=== PATIENT | male | born 1950 | race Caucasian/White ===

== ENCOUNTER → 2018-01-09 12:52 | Outpatient (CLI) | payer MEDICARE, OTHER, SELFPAY ==
[2018-01-09 13:58] LABS: Prostate Specific Antigen < 0.064 ng/mL (0.10-4.00)
== END ==
PROVIDERS: PCP Family Medicine; Visit Provider Urology
DX: Z85.46 Personal history of malignant neoplasm of prostate (principal)
CPT/HCPCS: 36415; 84153

== ENCOUNTER → 2018-08-09 15:39 | Outpatient (CLI) | payer MEDICARE, OTHER, SELFPAY ==
[2018-08-09 18:03] LABS: Prostate Specific Antigen < 0.064 ng/mL (0.10-4.00)
== END ==
PROVIDERS: Visit Provider Urology
DX: Z85.46 Personal history of malignant neoplasm of prostate (principal)
CPT/HCPCS: 36415; 84153

== ENCOUNTER → 2020-03-11 19:02 | Outpatient (ROUT) | payer MEDICARE, OTHER, SELFPAY ==
[2020-03-11 19:31] LABS: Aspartate Aminotransferase 34 IU/L (17-59); BUN Creatinine Ratio 20.9 (6-22); Blood Urea Nitrogen 19 mg/dL (9-20); Calcium 9.6 mg/dL (8.4-10.2); Carbon Dioxide 28 mmol/L (22-32); Chloride 105 mmol/L (98-107); Cholesterol 141 mg/dL (140-199); Estimated Glomerular Filt Rate > 60.0 mL/min (>60); Glucose 89 mg/dL (80-110); HDL Cholesterol 47 mg/dL (40-60); HEMOLYSIS < 15 (0-50); LDL Cholesterol Calculated 68 mg/dL (<100); Potassium 4.2 mmol/L (3.4-5.1); Sodium 139 mmol/L (137-145); Triglycerides 129 mg/dL (35-150)
[2020-03-11 20:30] LABS: Prostate Specific Antigen < 0.064 ng/mL (0.10-4.00)
== END ==
PROVIDERS: Visit Provider Internal Medicine
DX: E78.2 Mixed hyperlipidemia (principal); E08.8 Diabetes mellitus due to underlying condition with unspecified complications; Z85.46 Personal history of malignant neoplasm of prostate
CPT/HCPCS: 80048; 80061; 84153; 84450

== ENCOUNTER 2020-08-29 05:24 | Emergency (ER) | payer MEDICARE, OTHER, SELFPAY ==
--- NOTE | 2020-08-29 05:29 | DI.RAD.S_ITS ---
PROCEDURE: XR KNEE RT 3V INDICATIONS: fall, unstable sensation TECHNIQUE: 3 views of the knee were acquired. COMPARISON: None. FINDINGS: Bones: Lucency noted in the patella which may represent a nondisplaced fracture. Two small ossifications noted adjacent to the medial margin of the patella which may represent displaced avulsion fractures or dystrophic calcifications. No suspicious bony lesions. Soft tissues: Small nonspecific suprapatellar joint effusion. No suspicious soft tissue calcifications. IMPRESSION: 1. Possible patellar fracture. No fracture. If symptoms and/or clinical suspicion for pathology persists, further assessment with advanced imaging (e.g. CT, MRI) should be considered. 2. Small nonspecific joint effusion. Ligamentous injury is not excluded by this study. Findings discussed with Dr. Ledesma on August 29, 2020 at 10:04 a.m.. Dictated by: Zoya Servin MD, PhD on 08/29/2020 at 10:00 Approved by: Zoya Servin MD, PhD on 08/29/2020 at 10:04
[2020-08-29 05:30] VITALS: BP 141/73; PULSE 58; RESP 18; TEMP 36.3; O2SAT 98
--- NOTE | 2020-08-29 06:10 | ED.LOWEXIN ---
HPI - Extremity Injury (Lower) General Chief Complaint: Extremity Injury, Lower Stated Complaint: Fall, R Knee Pain Time Seen by Provider: 08/29/20 05:25 Source: patient Mode of arrival: EMS Limitations: no limitations History of Present Illness HPI Narrative: 70-year-old gentleman with type 2 diabetes and hyperlipidemia missed the 1st of 2 steps in his house fell forward landing on both knees and then with the his anterior she in planted on the ground continued body movement forward straining the knee as well as hitting it directly. Was able to get up but felt the knee was not going to hold him up. He is having minimal pain has noticed some mild suprapatellar swelling. Related Data Home Medications Medication Instructions Recorded Confirmed aspirin 81 mg PO QDAY #0 04/25/16 03/08/18 metformin 1,000 mg PO BID #0 04/25/16 03/08/18 simvastatin 40 mg PO QDAY #0 04/25/16 03/08/18 Allergies Allergy/AdvReac Type Severity Reaction Status Date / Time Sulfa (Sulfonamide Allergy Unknown rash Verified 03/08/18 13:59 Antibiotics) [SULFA (SULFONAMIDE ANTIBIOTICS)] Review of Systems Review of Systems Narrative: Pertinent positive and negative findings as per HPI Remainder of review of systems is otherwise unremarkable for Constitutional: Fevers, chills, weakness ENT: No sore throat, neck pain, ear pain CV: Chest pain, palpitations, Respiratory: Cough, wheeze, dyspnea GI: Nausea, vomiting, diarrhea, : Dysuria, hematuria, Patient History Medical History Diabetes Hyperlipidemia Social History Smoking Status: Former smoker Smoking Status: Former smoker Substance Use Type: does not use Exam Narrative Exam Narrative: General: Alert appropriate in no acute distress Respiratory: Able to speak in full sentences, no obvious respiratory distress Skin: No obvious rashes, warm and dry Neurologic: Grossly intact no obvious asymmetries or abnormalities Psych: appropriate insight and affect, cooperative Extremities: Effusion in the prepatellar region right knee. Increased laxity with both anterior and posterior drawer sign. Minimal pain or tenderness. No swelling to the calf at this point. No hematomas abrasions contusions. Lateral and medial collateral ligaments are stable. Initial Vital Signs Initial Vital Signs: Vital Signs Temperature 97.3 F L 08/29/20 05:30 Pulse Rate 58 L 08/29/20 05:30 Respiratory Rate 18 08/29/20 05:30 Blood Pressure 141/73 H 08/29/20 05:30 Pulse Oximetry 98 08/29/20 05:30 Course Orders Ordered: ED Orders 08/29/20 05:29 XR knee RT 3V Stat Vital Signs Vital signs: Vital Signs - 8 hr 08/29/20 05:30 Temperature 97.3 F L Pulse Rate 58 L Respiratory Rate 18 Blood Pressure 141/73 H Pulse Oximetry 98 [facility] - Extremity Injury (Lower) Medical Records Attestation: I reviewed the patient's medical records. Lab Data Attestation: I reviewed the patient's lab results. Imaging Data X-ray knee: Radiologist's Impression: Prepatellar soft tissue swelling without fracture Ranjit Gaytan MD [facility] Narrative Medical decision making narrative: 70-year-old gentleman who fell in his home today stumbled over 1 stair and fell down the 2nd stair. Prepatellar swelling to the knee with concern for internal derangement of the knee and instability. No bony fractures. Patient is placed in a long-leg immobilizer and given crutches. He is having minimal pain so additional pain medications are not prescribed. Will ask him to follow-up with [facility] sometime next week for definitive care and treatment. Discharge Plan Departure Patient Disposition: Home Clinical Impression: Injury of knee Qualifiers: Encounter type: initial encounter Laterality: right Qualified Code(s): S89.91XA - Unspecified injury of right lower leg, initial encounter Instructions: DI for Knee Sprain Activity Restrictions/Additional Instructions: Thank you for coming in today You have no broken bones in your knee. You have clearly done some damage with the swelling that is beginning over the kneecap. With the lack of pain the your having and the laxity within the knee I am concerned that you may have torn some of the ligaments. At this point the knee is not stable without support. Please keep the knee brace on an use the crutches. I would like you contact [facility] at [phone] and let them know that you are in the emergency department have an acute knee injury and need to be seen and further evaluated sometime next week. Using 400 mg of ibuprofen (2 [id number] pills) and 1 Tylenol every 6 hours can be very helpful in controlling pain. Ice can also be helpful in controlling the swelling If you feel that you are getting worse please return to the ER Prescriptions: No Action simvastatin 40 MG tablet 40 mg PO QDAY Qty: 0 RF: 0 metformin 1,000 MG tablet 1,000 mg PO BID Qty: 0 RF: 0 aspirin 81 MG tablet,chewable 81 mg PO QDAY Qty: 0 RF: 0
[2020-08-29 06:37] VITALS: BP 140/70; PULSE 60; RESP 18; O2SAT 98
--- NOTE | 2020-08-29 06:42 | PC.NURSE ---
a long leg knee immobilizer was applied.
== END 2020-08-29 06:37 | disposition home or self-care (01) ==
PROVIDERS: Emergency Provider Emergency Medicine
DX: S89.91XA Unspecified injury of right lower leg, initial encounter (principal); W19.XXXA Unspecified fall, initial encounter
CPT/HCPCS: 73562; 99283

== ENCOUNTER → 2020-09-24 15:27 | Outpatient (CLI) | payer MEDICARE, OTHER, SELFPAY ==
--- NOTE | 2020-09-24 15:29 | DI.MRI.S_ITS ---
PROCEDURE: MR KNEE RT WO CON INDICATIONS: Other fracture of right patella, initial encounter TECHNIQUE: Noncontrast sagittal PD fast spin echo and T2 fast spin echo with fat saturation, sagittal 3-D FLASH with fat saturation; coronal T1 spin echo and PD fast spin echo with fat saturation, and axial PD fast spin echo with fat saturation through the knee. COMPARISON: None. FINDINGS: Image quality: Excellent. Menisci: Oblique tear involving posterior horn of medial meniscus is seen extending to inferior articulating surface. There is no focal lateral meniscal tear. The meniscal root ligaments appear intact. Cruciate ligaments: The anterior and posterior cruciate ligaments appear intact. Medial structures: The medial collateral ligament appears intact. The posterior oblique ligament, semimembranosus tendon insertions, oblique popliteal ligament, and meniscocapsular junction appear intact. Visualized portions of the pes anserinus tendons appear normal. No abnormal bursal fluid. Lateral structures: The lateral collateral ligament, long and short heads of the biceps femoris tendon appear intact. The popliteus tendon appears normal; the popliteofibular ligament appears intact. The posterosuperior and anteroinferior popliteomeniscal fascicles appear intact. The arcuate and fabellofibular ligaments appear intact, on either side of the lateral inferior geniculate artery. Iliotibial band appears normal. Anterior structures: There is full-thickness rupture of distal quadriceps tendon at its superior patellar insertion with proximal retraction of torn tendon fibers and large amount of surrounding fluid and soft tissue edema. 5 millimeter fluid-filled gap is seen at the site of rupture. Patellar alignment is normal. Thickened medial patellar retinaculum with surrounding soft tissue edema is seen. No femoral trochlear dysplasia or ventral trochlear prominence. No edema in the infrapatellar fat pad. Bones and cartilage: Marrow edema involving medial periphery of medial femoral condyle is seen without discrete fracture line. Mild tricompartmental osteoarthritis and chondromalacia is seen more prominent in patellofemoral compartment. Joint space: There is moderate knee joint fluid. No Young's cyst. Normal appearing synovial plicae are incidentally noted. IMPRESSION: 1. Full-thickness rupture of distal quadriceps tendon at its superior patellar insertion with proximal retraction of torn tendon fibers and a 5 millimeter fluid-filled gap at the site of rupture. Extensive soft tissue edema and fluid is seen surrounding distal quadriceps tendon. Patellar tendon is intact. Suggestion of moderate grade partial-thickness tear involving medial patellar retinaculum without significant patella subluxation. 2. Mild tricompartmental osteoarthritis and chondromalacia more prominent in patellofemoral compartment. Moderate amount of joint fluid, no gross loose body. Mild bony contusion involving medial periphery of medial femoral condyle. 3. Oblique tear involving posterior horn of medial meniscus extending to inferior articulating surface. No focal lateral meniscal tear. 4. Cruciate ligaments are intact. Dictated by: Quincy Duenas M.D. on 09/24/2020 at 16:33 Approved by: Quincy Duenas M.D. on 09/24/2020 at 16:38
== END ==
PROVIDERS: PCP Internal Medicine; Referring Provider Orthopaedic Surgery; Visit Provider Orthopaedic Surgery
DX: S82.091A Other fracture of right patella, initial encounter for closed fracture (principal); S76.111A Strain of right quadriceps muscle, fascia and tendon, initial encounter; R60.0 Localized edema; M17.11 Unilateral primary osteoarthritis, right knee; M22.41 Chondromalacia patellae, right knee; S83.241A Other tear of medial meniscus, current injury, right knee, initial encounter; S80.01XA Contusion of right knee, initial encounter; X58.XXXA Exposure to other specified factors, initial encounter
CPT/HCPCS: 73721

== ENCOUNTER → 2021-05-06 15:34 | Outpatient (CLI) | payer MEDICARE, OTHER, SELFPAY ==
--- NOTE | 2021-05-06 | DI.MRI.S_ITS ---
PROCEDURE: MR LOWER LEG LT WO CON TECHNIQUE: Noncontrast coronal and sagittal T1 spin echo and STIR and axial T1 spin echo and T2 fast spin echo with fat saturation through the left lower leg. COMPARISON: None. INDICATIONS: CHRONIC LEFT ACHILLES RUPTURE FINDINGS: Bones: No acute trabecular bone injury. The osseous structures are normally aligned. No abnormal marrow replacing mass is seen. Soft tissues: Full-thickness tearing of the Achilles tendon is seen just above the calcaneal insertion with proximal tendon retraction measuring up to 8 cm. There is intervening fluid or hemorrhage. This area is included at the margins of the field of view of this exam. There is edema/muscle strain within the gastrocnemius and soleus muscles. Subcutaneous soft tissue edema is seen surrounding the lower leg. IMPRESSION: Full-thickness tearing of the distal Achilles tendon just proximal to its insertion onto the calcaneus with proximal tendon retraction measuring up to 8 mm. Intervening of fluid and hemorrhage is seen. Superimposed edema/muscle strains are seen within the gastrocnemius and soleus muscles. Dictated by: Cali Wellington M.D. on 05/06/2021 at 21:17 Approved by: Cali Wellington M.D. on 05/06/2021 at 21:29
== END ==
PROVIDERS: PCP Internal Medicine; Referring Provider Orthopaedic Surgery; Visit Provider Orthopaedic Surgery
DX: S86.012A Strain of left Achilles tendon, initial encounter (principal); X58.XXXA Exposure to other specified factors, initial encounter
CPT/HCPCS: 73718

== ENCOUNTER → 2021-07-20 15:44 | Outpatient (CLI) | payer MEDICARE, OTHER, SELFPAY ==
[2021-07-20 17:54] LABS: Prostate Specific Antigen < 0.064 ng/mL (0.10-4.00)
== END ==
LOC: RAD 15:57 → LAB 15:57
PROVIDERS: PCP Internal Medicine; Referring Provider Urology; Visit Provider Urology
DX: C61 Malignant neoplasm of prostate (principal)
CPT/HCPCS: 36415; 84153

== ENCOUNTER → 2022-10-11 12:06 | Outpatient (CLI) | payer MEDICARE, OTHER, SELFPAY ==
[2022-10-11 14:52] LABS: Prostate Specific Antigen < 0.064 ng/mL (0.10-4.00)
== END ==
PROVIDERS: PCP Internal Medicine; Referring Provider Urology; Visit Provider Urology
DX: Z12.5 Encounter for screening for malignant neoplasm of prostate (principal)
CPT/HCPCS: 36415; 84153; G0103

== ENCOUNTER → 2023-11-14 11:40 | Outpatient (CLI) | payer MEDICARE, OTHER, SELFPAY ==
[2023-11-14 13:30] LABS: Prostate Specific Antigen < 0.064 ng/mL (0.10-4.00)
== END ==
LOC: LAB 11:41
PROVIDERS: Referring Provider Urology; Visit Provider Urology
DX: C61 Malignant neoplasm of prostate (principal)
CPT/HCPCS: 36415; 84153

== ENCOUNTER → 2024-11-29 11:37 | Outpatient (CLI) | payer MEDICARE, OTHER, SELFPAY ==
[2024-11-29 13:20] LABS: Prostate Specific Antigen < 0.064 ng/mL (0.10-4.00)
== END ==
LOC: LAB 11:38
PROVIDERS: PCP Internal Medicine; Referring Provider Urology; Visit Provider Urology
DX: C61 Malignant neoplasm of prostate (principal)
CPT/HCPCS: 36415; 84153

== ENCOUNTER 2024-12-18 17:07 | Emergency (ER) | payer MEDICARE, OTHER, SELFPAY ==
[2024-12-18 17:11] VITALS: BP 125/72; PULSE 58; RESP 16; TEMP 36.9; O2SAT 96; BMI 32.1
--- NOTE | 2024-12-19 10:43 | ED.HA ---
HPI - Headache General Chief Complaint: Headache Stated Complaint: Lightheaded, pounding in ear sent from [facility] Time Seen by Provider: 12/18/24 17:18 Mode of arrival: Ambulatory Related Data Home Medications ?Medication ?Instructions ?Recorded ?Confirmed aspirin 81 mg chewable tablet 81 mg PO QDAY ##0 04/25/16 12/18/24 metformin 1,000 mg tablet 1,000 mg PO BID ##0 04/25/16 12/18/24 simvastatin 40 mg tablet 40 mg PO QDAY ##0 04/25/16 12/18/24 Allergies Allergy/AdvReac Type Severity Reaction Status Date / Time Sulfa (Sulfonamide Allergy Unknown rash Verified 12/18/24 17:06 Antibiotics) (SULFA (SULFONAMIDE ANTIBIOTICS)) Patient History Medical History Diabetes Hyperlipidemia Social History Smoking Status: Never smoker Smoking Status: Never smoker Exam Initial Vital Signs Initial Vital Signs: Vital Signs Temperature 98.4 F 12/18/24 17:11 Pulse Rate 58 L 12/18/24 17:11 Respiratory Rate 16 12/18/24 17:11 Blood Pressure 125/72 12/18/24 17:11 Pulse Oximetry 96 12/18/24 17:11 Oxygen Delivery Method Room Air 12/18/24 17:11 Discharge Plan Departure Patient Disposition: Left Without Being Seen Clinical Impression: Patient left without being seen Prescriptions: No Action simvastatin 40 MG tablet 40 mg PO QDAY Qty: 0 metformin 1,000 MG tablet 1,000 mg PO BID Qty: 0 aspirin 81 MG tablet,chewable 81 mg PO QDAY Qty: 0
== END 2024-12-18 20:37 | disposition left against medical advice (07) ==
LOC: ED 17:31
PROVIDERS: Emergency Provider Family Medicine; PCP Internal Medicine
CPT/HCPCS: 99281

== ENCOUNTER → 2025-02-09 13:08 | Outpatient (CLI) | payer MEDICARE, OTHER, SELFPAY ==
[2025-02-09 14:08] LABS: Influenza A - CEPHEID Flu A NEGATIVE (NEGATIVE); Influenza B - CEPHEID Flu B NEGATIVE (NEGATIVE)
[2025-02-09 14:28] LABS: COVID-19 CEPHEID 4-PLEX PCR Negative (Negative)
== END ==
PROVIDERS: PCP Internal Medicine; Visit Provider Registered Nurse
DX: R05.1 Acute cough (principal)
CPT/HCPCS: 87070; 87637